=== PATIENT | female | born 1965 | race Asian ===

== ENCOUNTER → 2016-06-18 | Outpatient (CLI) | payer OTHER | LOC: BRMIMAGING 14:31 | DX: Z12.31 Encounter for screening mammogram for malignant neoplasm of breast (principal) | CPT/HCPCS: G0202 ==

== ENCOUNTER → 2016-06-25 | Outpatient (CLI) | payer OTHER | LOC: BRMIMAGING 14:32 | PROVIDERS: ATTEND Nurse Practitioner Women's Health | DX: D25.2 Subserosal leiomyoma of uterus (principal); R93.8 Abnormal findings on diagnostic imaging of other specified body structures | CPT/HCPCS: 76856-PO ==

== ENCOUNTER → 2016-11-09 | Outpatient (CLI) | payer OTHER | LOC: BRMIMAGING 13:52 | PROVIDERS: ATTEND Nurse Practitioner Women's Health | DX: D25.1 Intramural leiomyoma of uterus (principal); N85.4 Malposition of uterus | CPT/HCPCS: 76856-PO ==

== ENCOUNTER 2016-12-01 04:37 | Emergency (ER) | payer OTHER ==
[2016-12-01 04:44] VITALS: TEMP 97.9; O2SAT 97
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
[2016-12-01] MEDS ORDERED: LORAZEPAM 1 MG PREPACK#4 BTL TAKEHOME ONE (05:30)
[2016-12-01 05:58] VITALS: BP 136/78; PULSE 60; RESP 20
== END 2016-12-01 05:50 | disposition home or self-care (01) ==
LOC: CED 04:37
DX: M54.12 Radiculopathy, cervical region (principal); M62.838 Other muscle spasm

== ENCOUNTER → 2017-06-19 | Outpatient (CLI) | payer OTHER | LOC: BRMIMAGING 12:53 | PROVIDERS: ATTEND Nurse Practitioner Women's Health | DX: Z12.31 Encounter for screening mammogram for malignant neoplasm of breast (principal); Z80.3 Family history of malignant neoplasm of breast ==

== ENCOUNTER → 2018-08-05 | Outpatient (CLI) | payer OTHER | LOC: BRMIMAGING 13:51 | PROVIDERS: ATTEND Nurse Practitioner Women's Health | DX: Z12.31 Encounter for screening mammogram for malignant neoplasm of breast (principal) ==